=== PATIENT | female | born 1975 | race Caucasian/White ===

== ENCOUNTER 2024-01-20 14:19 | Emergency (ER) | payer OTHER, SELFPAY ==
[2024-01-20 14:29] VITALS: BP 141/69; PULSE 94; RESP 16; TEMP 36.4; O2SAT 99; BMI 29.9
--- NOTE | 2024-01-20 15:15 | ED.RECABL ---
HPI - Recheck/Abnormal Lab/Rx General Chief Complaint: Recheck/Abnormal Lab/Rx Stated Complaint: bat encounter Time Seen by Provider: 01/20/24 14:50 Source: patient and RN notes reviewed Mode of arrival: Ambulatory Limitations: no limitations History of Present Illness HPI narrative: 48-year-old female who had exposure to bat. Patient woke up in her room the bat was within the room. Patient presents with her family member who was also in the room. They reached out to the resort they were staying at as well as public Health Department who recommended they come for vaccine and immunoglobulin. Patient denies any scratches or bites that she is aware of. No other symptoms currently. Patient states takes some PRN medications but nothing daily. No known drug allergies other than chlorhexidine and adhesive tape. Denies tobacco, occasional alcohol, no recreational drugs. Patient lives in the [facility] area. Related Data Allergies Allergy/AdvReac Type Severity Reaction Status Date / Time adhesive tape AdvReac Rash Verified 01/20/24 14:29 chlorhexidine AdvReac Rash Verified 01/20/24 14:29 [From [facility]] Review of Systems Review of Systems ROS Unobtainable: All systems reviewed & are unremarkable except as noted in HPI and below Patient History Social History Smoking Status: Never smoker Smoking Status: Never smoker alcohol intake frequency: a few times a week Substance Use Type: does not use Exam Narrative Exam Narrative: GENERAL: Alert and oriented x three, well-appearing female in mild distress. HEENT: Head normocephalic, atraumatic, EOMI, pupils reactive, face symmetric, moist mucous membranes NECK: Supple, full range of motion CARDIOVASCULAR: Regular rate and rhythm without murmurs, rubs or gallops. RESPIRATORY: Breath sounds equal bilaterally, no wheezes rales or rhonchi. ABDOMEN: Soft, nontender. Normoactive bowel sounds all 4 quadrants. No guarding or rebound, rigidity, no mass EXTREMITIES: Normal range of motion, no clubbing or edema. Neurovascularly intact NEUROLOGICAL: Cranial nerves II through XII grossly intact. Moving all extremities SKIN: Warm, dry, no petechiae, no rashes or lesions. Initial Vital Signs Initial Vital Signs: Vital Signs Temperature 97.6 F 01/20/24 14:29 Pulse Rate 94 H 01/20/24 14:29 Respiratory Rate 16 01/20/24 14:29 Blood Pressure 141/69 H 01/20/24 14:29 Pulse Oximetry 99 01/20/24 14:29 Oxygen Delivery Method Room Air 01/20/24 14:29 Course Orders Ordered: Discontinued Medications Rabies Immune Globulin (Rabies Immune Globulin 300 Unit/Ml 1ml Vial) 1,500 unit 20 unit/kg (1633 unit) IM NOW ONE Stop: 01/20/24 15:01 Last Admin: 01/20/24 15:32 Dose: 1,500 unit Documented By: GIA Rabies Vaccine (Rabies Vaccine (Rabavert) 2.5 Units Syringe) 2.5 units IM .ONCE ONE Stop: 01/20/24 14:52 Last Admin: 01/20/24 15:27 Dose: 2.5 units Documented By: GIA Vital Signs Vital signs: Vital Signs - 8 hr 01/20/24 14:29 01/20/24 15:54 Temperature 97.6 F Pulse Rate 94 H 88 Respiratory Rate 16 16 Blood Pressure 141/69 H 138/78 Pulse Oximetry 99 97 Oxygen Delivery Method Room Air Room Air MDM - Recheck/Abnormal Lab/Rx MDM Narrative Medical decision making narrative: 48-year-old female with bat exposure woke up in her room with back present. Patient did contact the health department who referred them here for immune globulin as well as rabies vaccine. Patient lives in the [facility] area but has primary care they can follow up we discussed can also contact public Health Department local emergency department or possibly travel clinic for the repeat vaccines. Discussed return precautions. Discharge Plan Departure Patient Disposition: Home Clinical Impression: Exposure to bat without known bite Instructions: DI for Rabies Vaccine Activity Restrictions/Additional Instructions: You have received the initial rabies immunoglobulin as well as your rabies vaccine, you will need to return to the closest facility for repeat vaccinations on day 3, day 7 and day 14. Scheduled included below. Please contact your primary care, travel Clinic, local emergency department or public Health Department to see the best place to follow up for your repeat vaccines if you are not staying here locally. Today is Day 0- [SaturdayJanuary 19] Day 3- [January 22] Day 7 -[SaturdayJanuary 26] Day 14 -[SaturdayFebruary 02] Can give ibuprofen and/or acetaminophen for any mild swelling itching or warmth at the vaccine site. Please return if you have any difficulty with fevers, breathing, rashes, alteration in mental status, chest pain or shortness of breath, persistent vomiting or other new or concerning changes. Referrals: Miscellaneous,Doctor, MD [Primary Care Provider] - Stand Alone Forms: Patient Portal/API
[2024-01-20] MEDS: RABIES VACCINE (RABAVERT) 2.5 UNITS SYRINGE IM (15:27)
[2024-01-20] MEDS: RABIES IMMUNE GLOBULIN 300 UNIT/ML 1mL VIAL 1500 UNIT IM (15:32)
[2024-01-20 15:54] VITALS: BP 138/78; PULSE 88; RESP 16; O2SAT 97
== END 2024-01-20 15:55 | disposition home or self-care (01) ==
PROVIDERS: Emergency Provider Emergency Medicine
DX: Z20.3 Contact with and (suspected) exposure to rabies (principal); Z23 Encounter for immunization
CPT/HCPCS: 90375; 90471; 90675; 96372; 99283